=== PATIENT | female | born 1990 | race Caucasian/White ===

== ENCOUNTER → 2020-11-18 | Outpatient (CLI) | payer OTHER | LOC: US 08:01 | DX: R11.2 Nausea with vomiting, unspecified (principal) | CPT/HCPCS: 76705 ==

== ENCOUNTER 2020-12-06 19:47 | Emergency (ER) | payer OTHER | END 2020-12-06 21:35 | disposition home or self-care (01) | LOC: ER1 19:47 | DX: R60.0 Localized edema (principal) | CPT/HCPCS: 85379; 85610; 85730; 99283 ==

== ENCOUNTER → 2020-12-26 | Outpatient (CLI) | payer OTHER ==
[2020-12-31 17:13] LABS: DRVVT 34.9 sec (0.0-47.0); LUPUS REFLEX INTERPRETATION Comment: (.); PT 10.5 sec (9.1-12.0); PT 1:1NP 10.4 sec (9.1-12.0); PTT-LA 42.3 sec (0.0-51.9); THROMBIN TIME 16.7 sec (0.0-23.0)
== END ==
LOC: LAB 12:51
PROVIDERS: Internal Medicine Hematology & Oncology
DX: D68.62 Lupus anticoagulant syndrome (principal)
CPT/HCPCS: 36415; 85611

== ENCOUNTER 2022-01-20 09:29 | Emergency (ER) | payer OTHER ==
[2022-01-20] MEDS ORDERED: BACTRIM DS TAB1 EACH PO (11:12)
[2022-01-20] MEDS ORDERED: CEPHALEXIN500 MG PO (11:12)
== END 2022-01-20 11:28 | disposition home or self-care (01) ==
LOC: ER1 09:29
DX: L02.416 Cutaneous abscess of left lower limb (principal); E11.9 Type 2 diabetes mellitus without complications; F17.290 Nicotine dependence, other tobacco product, uncomplicated
CPT/HCPCS: 10060; 99283